=== PATIENT | female | born 1965 | race Caucasian/White ===

== ENCOUNTER 2017-02-05 18:43 | Emergency (ER) | payer BC ==
--- NOTE | 2017-02-05 19:18 | UC ---
Cardiac HPI - HPI Summary HPI Summary: 51 y/o female with PMH of bronchitis x ? 2 weeks, on z=pac, prednisone, no improvement. States this AM woke up with b/l LE weakness, heaviness, L sided face weakness, numbness, L arm numbness. States now has chest tightness as well , + sob, h/o smoking. no cardiac history. - History of Current Complaint Hx Obtained From: Patient, Family/Histotechnologist - Onset/Duration: Sudden Onset, Lasting Hours - since this AM Initial Severity: Moderate Chest Pain Location: Diffuse - Left arm weakness, heaviness <Laura Caruso - Last Filed: 02/05/17 19:25> <Merry Beckman - Last Filed: 02/06/17 07:40> - History of Current Complaint Chief Complaint: UCGeneralIllness Stated Complaint: LEFT ARM NUMBNESS Time Seen by Provider: 02/05/17 19:09 - Allergy/Home Medications Allergies/Adverse Reactions: Allergies Allergy/AdvReac Type Severity Reaction Status Date / Time No Known Allergies Allergy Verified 02/05/17 18:46 Home Medications: Home Medications Aspirin [Aspirin 81 MG TAB] 1 tab DAILY 02/05/17 [History Confirmed 02/05/17] Diltiazem XR (NF) [Cartia XR (NF)] 360 mg DAILY 02/05/17 [History Confirmed 02/12] Fenofibrate [Tricor] 1 tab DAILY 02/05/17 [History Confirmed 02/05/17] Hydrochlorothiazide TAB* [Hydrodiuril TAB*] 25 mg DAILY 02/05/17 [History Confirmed 02/05/17] Simvastatin [Zocor 40 MG (NF)] 20 mg DAILY 02/05/17 [History Confirmed 02/05/17] metFORMIN* [Glucophage 500 MG TAB *] 1 tab QPM 02/05/17 [History Confirmed 02/05] PMH/Surg Hx/FS Hx/Imm Hx Respiratory History: COPD, Bronchitis - Surgical History Surgical History: None - Social History Alcohol Use: Occasionally Substance Use Type: None Smoking Status (MU): Current Every Day Smoker Type: Cigarettes Amount Used/How Often: LESS THAN 1 PPD Length of Time of Smoking/Using Tobacco: 30 YEARS - Immunization History Most Recent Influenza Vaccination: JAN 2017 <Laura Caruso - Last Filed: 02/05/17 19:25> Review of Systems Constitutional: Fatigue Respiratory: Shortness Of Breath Cardiovascular: Chest Pain Motor: Weakness Neurovascular: Decreased Sensation Neurological: Weakness, Numbness Is Patient Immunocompromised?: No All Other Systems Reviewed And Are Negative: Yes <Laura Caruso - Last Filed: 02/05/17 19:25> Physical Exam Triage Information Reviewed: Yes Appearance: No Pain Distress, Well-Nourished, Ill-Appearing - veras, ashen Vital Signs: Initial Vital Signs Temp 97.5 F 02/05/17 18:47 Pulse 93 02/05/17 18:47 Resp 16 02/05/17 18:47 BP 184/93 02/05/17 18:47 Pulse Ox 96 02/05/17 18:47 Eyes: Positive: Conjunctiva Clear Neck: Positive: Supple, Nontender, No Lymphadenopathy Respiratory: Positive: Chest non-tender, Decreased breath sounds - b/l, Crackles , Rhonchi, Wheezing. Negative: No respiratory distress, No accessory muscle use , Respiratory distress, Stridor Cardiovascular: Positive: RRR, No Murmur, Pulses Normal Musculoskeletal: Positive: Strength Intact, ROM Intact, No Edema, Other: - UE/ LE ROM, strength 5/5, equal b/l, no deficits noted. Neurological: Positive: Alert, Muscle Tone Normal, Other: - sensation grossly intact to light touch b/l UE, LE's Psychological Exam: Normal Skin Exam: Normal - Additional Comments CN grossly intact, facial symmetry intact, full strength. normal gait. <Laura Caruso - Last Filed: 02/05/17 19:25> Vital Signs: Initial Vital Signs Temp 97.5 F 02/05/17 18:47 Pulse 93 02/05/17 18:47 Resp 16 02/05/17 18:47 BP 184/93 02/05/17 18:47 Pulse Ox 96 02/05/17 18:47 <Merry Beckman - Last Filed: 02/06/17 07:40> - Assessment/Plan Course Of Treatment: EKG with depressed T in V1, elevated BP, chest tightness, recommended transported to ER via ambo, spoke with Caitlin Boone at [facility] . - Differential Diagnoses - Chest Pain Differential Diagnosis/HQI/PQRI: Acute IN, Angina, Lower Respiratory Infection - Clinical Impression Provider Diagnoses: acute chest tightness, sent to ER for further eval <Laura Caruso - Last Filed: 02/05/17 19:25> Discharge - Discharge Plan Discharge Disposition Comment: gaurded <Laura Caruso - Last Filed: 02/05/17 19:25> - Discharge Plan Discharge Disposition Comment: [facility] - pt request <Merry Beckman - Last Filed: 02/06/17 07:40> - Discharge Plan Condition: Guarded Disposition: TRANS HIGHER LVL OF CARE FAC Referrals: Hannah Lopez [employer]PA[employer] [Primary Care Provider] - Additional Instructions: Patient taken by ambulance to [place] ER due to chest heaviness, L arm weakness / numbness Attestation Statement User Type: Provider - I was available for consult. This patient was seen by the DEANGELO. The patient was not presented to, seen by, or examined by me. -Rekha <Merry Beckman - Last Filed: 02/06/17 07:40>
== END 2017-02-05 19:30 | disposition short-term general hospital (02) ==
LOC: UCCORT 18:43
DX: R07.89 Other chest pain (principal); R06.02 Shortness of breath; R53.83 Other fatigue; Z79.82 Long term (current) use of aspirin; R20.0 Anesthesia of skin; J44.9 Chronic obstructive pulmonary disease, unspecified; F17.210 Nicotine dependence, cigarettes, uncomplicated
CPT/HCPCS: 93005; 99203; G0463